=== PATIENT | female | born 1990 | race Caucasian/White ===

== ENCOUNTER 2018-07-04 07:32 | Emergency (ER) | payer BC, OTHER ==
[~2018-07-04] VITALS: Ht 157.5 cm; Wt 44.5 kg
[2018-07-04 07:36] VITALS: BP 136/69; PULSE 98; RESP 16; Ht 157.5 cm; Wt 44.5 kg
--- NOTE | 2018-07-04 09:11 | ERD ---
ER Documentation Chief Complaint Chief Complaint nausea and diarrhea x 3 days HPI 27-year-old female with no past medical surgical history presents with 3-day complaint of nausea and diarrhea. Also epigastric abdominal pain. The symptoms began morning after eating out. She otherwise denies fevers, chills, radiation of abdominal pain, vomiting, vaginal bleeding or discharge, urinary symptoms. Symptoms have improved somewhat over this time span. At time of evaluation patient is nontoxic-appearing with completely reassuring examination. ROS All systems reviewed and are negative except as per history of present illness. PMhx/Soc Medical and Surgical Hx: pt denies Medical Hx, pt denies Surgical Hx Hx Alcohol Use: No Hx Substance Use: No Smoking Status: Never smoker FmHx Family History: No diabetes, No coronary disease, No other Physical Exam Vitals Vital Signs Date Temp Pulse Resp B/P (MAP) Pulse Ox O2 O2 Flow FiO2 Time Delivery Rate 07/04/18 97.7 98 16 136/69 98 07:36 (91) Physical Exam I have reviewed the triage vital signs. Const: Well nourished, well developed, appears stated age Eyes: PERRL, no conjunctival injection HENT: NCAT, Neck supple without meningismus CV: RRR, Warm, well-perfused extremities RESP: CTAB, Unlabored respiratory effort GI: soft, non-tender, non-distended, no masses MSK: No gross deformities appreciated Skin: Warm, dry. No rashes Neuro: grossly non focal Psych: Appropriate mood and affect. Procedures/MDM 27-year-old female presents with epigastric abdominal pain as well as diarrhea. Differential diagnoses includes possible acute gastroenteritis. Abdominal exam without peritoneal signs. Currently euvolemic without evidence of dehydration. No evidence of surgical abdomen or other acute medical emergency including bowel obstruction, viscus perforation, vascular catastrophe, atypical appendicitis, acute cholecystitis at this time. Presentation not consistent with other acute, emergent causes of vomiting / diarrhea at this time. No indication for abdominal imaging. She is eating and drinking without issue and exhibits no signs or symptoms of dehydration. Plan: supportive care, oral rehydration , PMD follow-up DISPOSITION PLAN: We discussed follow up with the patient's primary care doctor within 24 to 48 hours. Patient counseled regarding my diagnostic impression and care plan. Prior to discharge all questions answered. Pt agrees with treatment plan and understands strict return precautions. Precautionary instructions provided including instructions to return to the ER if not improving or for any worsening or changing symptoms or concerns. Departure Diagnosis: Primary Impression: Diarrhea Condition: Stable Patient Instructions: Treating Diarrhea Referrals: [facility] YOU HAVE RECEIVED A MEDICAL SCREENING EXAM AND THE RESULTS INDICATE THAT YOU DO NOT HAVE A CONDITION THAT REQUIRES URGENT TREATMENT IN THE EMERGENCY DEPARTMENT. FURTHER EVALUATION AND TREATMENT OF YOUR CONDITION CAN WAIT UNTIL YOU ARE SEEN IN YOUR DOCTORS OFFICE WITHIN THE NEXT 1-2 DAYS. IT IS YOUR RESPONSIBILITY TO MAKE AN APPOINTMENT FOR FOLOW-UP CARE. IF YOU HAVE A PRIMARY DOCTOR --you should call your primary doctor and schedule an appointment IF YOU DO NOT HAVE A PRIMARY DOCTOR YOU CAN CALL OUR PHYSICIAN REFERRAL HOTLINE AT IF YOU CAN NOT AFFORD TO SEE A PHYSICIAN YOU CAN CHOSE FROM THE FOLLOWING [facility] [address] [facility]. [facility] [address] [facility]. [facility] [address] [facility]. [facility] [address] [facility]. [facility] [address] [facility]. [facility] [address] Additional Instructions: Call your primary care doctor TOMORROW for an appointment during the next 2-3 days.See the doctor sooner or return here if your condition worsens before your appointment time. KAVYA BRADY PA-C July 04, 2018 09:11
== END 2018-07-04 09:17 | disposition home or self-care (01) ==
LOC: FTE 07:32
DX: R19.7 Diarrhea, unspecified (principal)
CPT/HCPCS: 99282

== ENCOUNTER 2018-10-11 08:55 | Inpatient (IN) | payer BC, OTHER ==
[2018-10-11] VITALS (14 sets, daily range): BP systolic 100–114; BP diastolic 62–83; PULSE 62–92; RESP 13–20; Ht 157.5 cm; Wt 45.5 kg
[~2018-10-11] VITALS: Ht 157.5 cm; Wt 45.5 kg
[2018-10-11] MEDS ORDERED: SOD CHLORIDE 0.9% 1,000 ML IV STA (09:08)
[2018-10-11] MEDS ORDERED: morphine 4 MG/ML VIAL IV STA (09:08)
[2018-10-11] MEDS ORDERED: ONDANSETRON 4 MG INJ IV STA (09:08)
[2018-10-11] MEDS ORDERED: SOD CHLORIDE 0.9% 100 ML ONE (10:19)
[2018-10-11] MEDS ORDERED: IOHEXOL 300MG/ML 150 ML BTL ONE (10:19)
[2018-10-11] MEDS ORDERED: PIPER-TAZO 3.375 GM IV (PMX) 100 ML IVPB ONE (11:00)
[2018-10-11] MEDS ORDERED: ONDANSETRON 4 MG INJ IV PRN ×4 (11:30→15:30)
[2018-10-11] MEDS ORDERED: ACETAMINOPHEN 325 MG TAB PO PRN ×2 (11:30→12:00)
--- NOTE | 2018-10-11 11:32 | ERD ---
ER Documentation Chief Complaint Chief Complaint right sided abdominal pain since last, +nausea HPI 27-year-old female presenting with right lower quadrant pain x1 day. Last night patient began having generalized abdominal pain and nausea with no vomiting. No fevers. Has not taken medications for symptoms. She woke up this morning with worsening right lower quadrant pain she states her bowel movements have been loose. Last movement was yesterday. Denies medical problems. NKDA. Surgical history denies. Social history denies ROS All systems reviewed and are negative except as per history of present illness. Allergies Allergies: Coded Allergies: No Known Allergy (Unverified , 10/11/18) PMhx/Soc Medical and Surgical Hx: pt denies Medical Hx, pt denies Surgical Hx Hx Alcohol Use: No Hx Substance Use: No Hx Tobacco Use: No Smoking Status: Never smoker FmHx Family History: No diabetes, No coronary disease, No other Physical Exam Vitals Vital Signs Date Temp Pulse Resp B/P (MAP) Pulse Ox O2 O2 Flow FiO2 Time Delivery Rate 10/11/18 98.1 79 18 127/85 100 08:56 (99) Physical Exam GENERAL: The patient is well-appearing, well-nourished, in no acute distress HEENT: Atraumatic. Conjunctivae are pink. Pupils equal, round, and reactive to light. There is no scleral icterus. Tympanic membranes clear bilaterally. Oropharynx clear. CHEST: Clear to auscultation bilaterally. There are no rales, wheezes or rhonchi. HEART: Regular rate and rhythm. No murmurs, clicks, rubs or gallops. No S3 or S4. ABDOMEN: Normal active bowel sounds. No distention. No organomegaly. Tender to palpation in the right lower quadrant with rebound tenderness. Result Diagram: 10/11/1815 10/11/1815 Results 24 hrs Laboratory Tests Test 10/11/18 09:15 10/11/18 09:16 10/11/18 09:26 White Blood Count 15.1 10^3/ul Red Blood Count 4.98 10^6/ul Hemoglobin 14.8 g/dl Hematocrit 44.1 % Mean Corpuscular Volume 88.6 fl Mean Corpuscular Hemoglobin 29.7 pg Mean Corpuscular 33.6 g/dl Hemoglobin Concent Red Cell Distribution Width 12.4 % Platelet Count 278 10^3/UL Mean Platelet Volume 9.7 fl Immature Granulocytes % 0.500 % Neutrophils % 85.4 % Lymphocytes % 9.0 % Monocytes % 4.8 % Eosinophils % 0.1 % Basophils % 0.2 % Nucleated Red Blood Cells % 0.0 /100WBC Immature Granulocytes # 0.070 10^3/ul Neutrophils # 12.9 10^3/ul Lymphocytes # 1.4 10^3/ul Monocytes # 0.7 10^3/ul Eosinophils # 0.0 10^3/ul Basophils # 0.0 10^3/ul Nucleated Red Blood Cells # 0.0 10^3/ul Sodium Level 138 mmol/L Potassium Level 4.2 mmol/L Chloride Level 101 mmol/L Carbon Dioxide Level 30 mmol/L Anion Gap 7 Blood Urea Nitrogen 12 mg/dl Creatinine 0.58 mg/dl Est Glomerular Filtrat > 60 mL/min Rate mL/min Glucose Level 108 mg/dl Calcium Level 9.9 mg/dl Total Bilirubin 0.7 mg/dl Direct Bilirubin 0.00 mg/dl Indirect Bilirubin 0.7 mg/dl Aspartate Amino 19 IU/L Transf (AST/SGOT) Alanine 15 IU/L Aminotransferase (ALT/SGPT) Alkaline Phosphatase 59 IU/L Total Protein 8.1 g/dl Albumin 4.8 g/dl Globulin 3.30 g/dl Albumin/Globulin Ratio 1.45 Lipase 114 U/L Urine Color YELLOW Urine Clarity CLEAR Urine pH 7.0 Urine Specific [place] 1.020 Urine Ketones TRACE mg/dL Urine Nitrite NEGATIVE mg/dL Urine Bilirubin NEGATIVE mg/dL Urine Urobilinogen NEGATIVE mg/dL Urine Leukocyte Esterase NEGATIVE Socrates/ul Urine Microscopic RBC 11 /HPF Urine Microscopic WBC 1 /HPF Urine Squamous Epithelial Cells FEW /HPF Urine Bacteria FEW /HPF Urine Mucus FEW /HPF Urine Yeast (Budding) FEW /HPF Urine Hemoglobin 1+ mg/dL Urine Glucose NEGATIVE mg/dL Urine Total Protein NEGATIVE mg/dl POC Beta HCG, Qualitative NEGATIVE Current Medications Medications Dose Sig/Jorge Start Time Status Last (Trade) Ordered Route PRN Stop Time Admin Dose Reason Admin Sodium 1,000 ml @ Q1H STAT 10/11/18 DC 10/11/18 Chloride 1,000 mls/hr IV 09:08 09:21 10/11/18 10:07 Morphine 4 mg ONCE STAT 10/11/18 DC 10/11/18 Sulfate IV 09:08 09:29 (morphine) 10/11/18 09:10 Ondansetron 4 mg ONCE STAT 10/11/18 DC 10/11/18 HCl (Zofran IV 09:08 09:21 Inj) 10/11/18 09:10 Iohexol 150 ml STK-MED 10/11/18 DC 10/11/18 (Omnipaque ONCE .ROUTE 10:19 10:31 300mg/ ml) 10/11/18 10:20 Sodium 100 ml @ ud STK-MED 10/11/18 DC 10/11/18 Chloride ONCE .ROUTE 10:19 10:31 10/11/18 10:20 Piperacillin 100 ml @ ONCE ONCE 10/11/18 DC 10/11/18 Sod/ 200 mls/hr IVPB 11:00 10:47 Tazobactam 10/11/18 11:29 Sod Ondansetron 4 mg BRIDGE ORDER 10/11/18 HCl (Zofran PRN IV 11:30 Inj) NAUSEA/VOMITI 10/12/18 11:29 NG 650 mg ER BRIDGE 10/11/18 Acetaminophen PRN PO 11:30 (Tylenol .MILD PAIN 10/12/18 11:29 Tab) 1-3 OR TEMP Procedures/MDM DIAGNOSTIC IMAGING REPORT Patient: SCOUT DYER : 1990 Age: 27 Sex: F MR #: [id number] DOS: 10/11/18 0908 Ordering MD: MARC VELASCO PA-C Location: [facility] Room/Bed: PROCEDURE: CT Abdomen and Pelvis with IV contrast. CLINICAL INDICATION: Abdominal pain TECHNIQUE: CT of the abdomen and pelvis with 100 cc Omnipaque-300 IV contrast. Coronal and sagittal reformatted images. DICOM images are available. One or more of the following dose reduction techniques were used: automated exposure control, adjustment of the mA and/or kV according to patient size, use of iterative reconstruction technique. CTDI 4.2 mGy, DLP 218 mGy-cm. COMPARISON: Ultrasound, 10/11/2018 FINDINGS: Lower thorax: Normal. Liver: Normal. Biliary: Normal gallbladder. No biliary dilatation. Pancreas: Normal. Spleen: Normal. Adrenal glands: Normal. Genitourinary: No hydronephrosis or urinary calculi. Unremarkable urinary bladder. Vascular: No abdominal aortic aneurysm or dissection. Lymph nodes: No lymphadenopathy. Gastrointestinal: The appendix is distended (9 mm diameter) and thick-walled, with adjacent inflammation/edema, compatible with appendicitis. The appendix is retrocecal. No bowel obstruction. Scattered colonic diverticula, without diverticulitis. Peritoneum: No free air, free fluid or abscess. Reproductive organs: Unremarkable. Musculoskeletal: Unremarkable. IMPRESSION: 1. The study is positive for retrocecal appendicitis, as above. 2. Scattered colonic diverticula, without diverticulitis. DIAGNOSTIC IMAGING REPORT Patient: SCOUT DYER : 1990 Age: 27 Sex: F MR #: [id number] DOS: 10/11/18 0908 Ordering MD: MARC VELASCO PA-C Location: [facility] Room/Bed: PROCEDURE: US Pelvis. CLINICAL INDICATION: Pelvic pain. TECHNIQUE: The pelvis was evaluated with transabdominal and transvaginal sonography in the axial and sagittal planes. COMPARISON: No prior study is available for comparison. FINDINGS: Uterus: 7.5 x 5.6 x 3.7 cm. Endometrium: 4 mm. Right ovary: 3.3 x 3.4 x 1.4 cm. Left ovary: 3.3 x 2.4 x 2 cm. Uterine masses: None. Ovarian masses: There is a 2 cm anechoic lesion within the right ovary. There is another 1.2 cm hypoechoic lesion within the right ovary. Color Doppler and pulsed Doppler sonography demonstrate normal flow to the ovaries. Other pelvic masses: None. Free fluid: Mild IMPRESSION: 2 cm anechoic lesion within the right ovary. There is another 1.2 cm hypoechoic lesion within the right ovary. These may represent cysts. Correlate with test to exclude abnormal or ectopic . Mild free fluid, likely physiologic. ER Course: 1L NS saline and morphine given in ED. Zosyn given in ED. MDM: 27-year-old female presenting with abdominal pain. Patient has findings consistent with appendicitis and patient will be admitted for higher level of care. I have low suspicion for other acute abdominal emergencies or ovarian torsion. She does have findings of ovarian cyst which could be causing pain. Patient is admitted for higher level of care and stable at the time of admission. Dr. Ortiz and will assist with admission. Departure Diagnosis: Primary Impression: Appendicitis Condition: Critical SADE VELASCO PA-C Oct 11, 2018 11:32
--- NOTE | 2018-10-11 11:54 | HP ---
Date/Time of Note Date/Time of Note DATE: 10/11/18 TIME: 11:54 Assessment/Plan [facility]TE Prophylaxis Pharmacological prophylaxis: NA/contraindicated Pharm contraindication: low risk/ambulating Lines/Catheters [facility] Peripheral IV Assessment/Plan Hospital Course 27-year-old female with no significant past medical history with abdominal pain and CT evidence of acute appendicitis. 1. Abdominal pain with CT evidence of acute appendicitis. N.p.o. Pain control. IV fluids. Antibiotics. Surgical consult has been obtained. To the OR today. 2. Leukocytosis. Most probably secondary to #1. Management as per #1. 3. ?Ovarian cysts (incidental finding). Outpatient GENERAL OPHTHALMOLOGIST follow-up. Plan: The patient will be kept n.p.o except for medications.. The patient will be started on DVT prophylaxis . The patient will remain a full code. Activities will be as tolerated. The rest of the patient's management will be based on the clinical course, inputs from consultants, and the results of diagnostic studies. The patient was seen in collaboration with Dr. Connor. Result Diagram: 10/11/1815 10/11/18 0915 Results 24hrs Laboratory Tests Test 10/11/18 09:15 10/11/18 09:16 10/11/18 09:26 White Blood Count 15.1 H Red Blood Count 4.98 Hemoglobin 14.8 Hematocrit 44.1 Mean Corpuscular Volume 88.6 Mean Corpuscular Hemoglobin 29.7 Mean Corpuscular Hemoglobin Concent 33.6 Red Cell Distribution Width 12.4 Platelet Count 278 Mean Platelet Volume 9.7 Immature Granulocytes % 0.500 H Neutrophils % 85.4 H Lymphocytes % 9.0 L Monocytes % 4.8 Eosinophils % 0.1 Basophils % 0.2 Nucleated Red Blood Cells % 0.0 Immature Granulocytes # 0.070 H Neutrophils # 12.9 H Lymphocytes # 1.4 Monocytes # 0.7 Eosinophils # 0.0 Basophils # 0.0 Nucleated Red Blood Cells # 0.0 Sodium Level 138 Potassium Level 4.2 Chloride Level 101 Carbon Dioxide Level 30 Anion Gap 7 Blood Urea Nitrogen 12 Creatinine 0.58 Est Glomerular Filtrat Rate mL/min > 60 Glucose Level 108 Calcium Level 9.9 Total Bilirubin 0.7 Direct Bilirubin 0.00 Indirect Bilirubin 0.7 Aspartate Amino Transf (AST/SGOT) 19 Alanine Aminotransferase (ALT/SGPT) 15 Alkaline Phosphatase 59 Total Protein 8.1 Albumin 4.8 Globulin 3.30 H Albumin/Globulin Ratio 1.45 Lipase 114 Urine Color YELLOW Urine Clarity CLEAR Urine pH 7.0 Urine Specific [place] 1.020 Urine Ketones TRACE A Urine Nitrite NEGATIVE Urine Bilirubin NEGATIVE Urine Urobilinogen NEGATIVE Urine Leukocyte Esterase NEGATIVE Urine Microscopic RBC 11 H Urine Microscopic WBC 1 Urine Squamous Epithelial Cells FEW Urine Bacteria FEW A Urine Mucus FEW A Urine Yeast (Budding) FEW A Urine Hemoglobin 1+ H Urine Glucose NEGATIVE Urine Total Protein NEGATIVE POC Beta HCG, Qualitative NEGATIVE HPI/ROS Admit Date/Time Admit Date/Time Hx of Present Illness Chief complaint: Abdominal Pain Consultants 1. Graham Jeong MD, General Surgery. This is a 27-year-old female with no significant past medical history. The patient started having right lower quadrant abdominal pain since last night along with associated nausea, but no vomiting. She denied any radiation of the pain. The patient denied any fevers or chills. The patient has been complaining of loose bowel movements. She denied any urinary frequency or urgency. She denied any headache, chest pain, or dyspnea. She works as an RN at [employer]. In the emergency room, the patient was noticed to have leukocytosis (WBC 15). The patient was afebrile. The patient underwent a CT scan of the abdomen and pelvis that was showing retrocecal appendicitis. The CT also revealed scattered colonic diverticula without evidence any diverticulitis. The patient also underwent a pelvic ultrasound that was showing 2 cm anechoic lesion within the right ovary with another 1.2 cm hypoechoic lesion within the right ovary, which may represent cysts. She was treated with IV Zosyn, IV analgesics, and IV fluids in the emergency room. General surgery consult was obtained by ER physician. ROS Constitutional: nausea Eyes: no complaints ENT: no complaints Respiratory: no complaints Cardiovascular: no complaints Gastrointestinal: pain, diarrhea, nausea Genitourinary: no complaints Musculoskeletal: no complaints Skin: no complaints Neurologic: no complaints Endocrine: no complaints Lymphatic: no complaints Psychological: no complaints Immunologic: no complaints PMH/Family/Social Past Medical History Medical History: no pertinent history Medications Current Medications Ondansetron HCl (Zofran Inj) 4 mg BRIDGE ORDER PRN IV NAUSEA/VOMITING; Start 10/11/18 at 11:30; Stop 10/12/18 at 11:29 Acetaminophen (Tylenol Tab) 650 mg ER BRIDGE PRN PO .MILD PAIN 1-3 OR TEMP; Start 10/11/18 at 11:30; Stop 10/12/18 at 11:29 Coded Allergies: No Known Allergy (Unverified , 10/11/18) Past Surgical History 1. 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 Lives at home with family. Alcohol Use: none Smoking Status: Never smoker Drug Use: none Exam/Review of Systems Vital Signs Vitals Vital Signs Date Temp Pulse Resp B/P (MAP) Pulse Ox O2 O2 Flow FiO2 Time Delivery Rate 10/11/18 98.1 79 18 127/85 100 08:56 (99) Exam Exam General: Adequately build 27 year-old female lying in bed in no apparent distress. HEENT: Normocephalic, atraumatic. Eyes: Anicteric sclerae, conjunctivae clear. ENT: Nasal septum midline, oral mucosa moist. Neck supple, no JVD noticed. Respiratory: Bilaterally clear breath sounds. No use of accessory muscles of respiration. No adventitious breath sounds. Cardiovascular: S1, S2 heard. Regular rate and rhythm. Abdomen: Soft and nondistended. Right upper quadrant tenderness. Genitourinary: Deferred. Extremities: No cyanosis, no clubbing, no edema. Peripheral pulses palpable. Neurologic: Cranial nerves II through XII grossly intact. The patient is awake, alert, and oriented. Skin: Normal skin turgor. No skin rashes. Additional Comments CT Abdomen & Pelvis IMPRESSION: 1. The study is positive for retrocecal appendicitis. 2. Scattered colonic diverticula, without diverticulitis. KACEY BRANCH NP Oct 11, 2018 11:54
[2018-10-11] MEDS ORDERED: SOD CHLORIDE 0.9% 1,000 ML IV SCH (11:55)
[2018-10-11] MEDS ORDERED: NACL 0.9% 3 ML SYG IV SCH (12:00)
[2018-10-11] MEDS ORDERED: morphine 2 MG INJ IV PRN ×2 (12:00→15:30)
[2018-10-11] MEDS ORDERED: HYDROCODONE/APAP (5/325) TAB PO PRN (12:00)
[2018-10-11] MEDS ORDERED: PIPER-TAZO 3.375 GM IV (PMX) 100 ML IVPB SCH (12:00)
--- NOTE | 2018-10-11 14:19 | PREAC ---
Date/Time of Note Date/Time of Note DATE: 10/11/18 TIME: 14:18 Anesthesia Eval and Record Evaluation Time Pre-Procedure Interview DATE: 10/11/18 TIME: 14:18 Age 27 Sex female NPO: 8 hrs Preoperative diagnosis appendicitis Planned procedure laparoscopic appendectomy Past Medical History Past Medical History: None Surgery & Anesthesia Issues No known issue Meds Anticoagulation: No Beta Emmanuel within 24 hr: No Reason Beta Emmanuel not given: Pt. not on B-Emmanuel Current Medications Sodium Chloride 1,000 ml @ 100 mls/hr Q10H IV Last administered on 10/11/18at 12:18; Admin Dose 100 MLS/HR; Start 10/11/18 at 11:55 IV Flush (NS 3 ml) 3 ml PER PROTOCOL IV ; Start 10/11/18 at 12:00 Ondansetron HCl (Zofran Inj) 4 mg Q6H PRN IV NAUSEA/VOMITING; Start 10/11/18 at 12:00 Acetaminophen (Tylenol Tab) 650 mg Q6H PRN PO .PAIN 1-3 OR TEMP; Start 10/11/18 at 12:00 Acetaminophen/ Hydrocodone Bitart ([place] (5/325)) 1 tab Q6H PRN PO .MOD PAIN 4- 6; Start 10/11/18 at 12:00 Morphine Sulfate (morphine) 2 mg Q4H PRN IV .SEVERE PAIN 7-10; Start 10/11/18 at 12:00 Piperacillin Sod/ Tazobactam Sod 100 ml @ 200 mls/hr Q6 IVPB ; Start 10/11/18 at 12:00 Meds reviewed: Yes Allergies Coded Allergies: No Known Allergy (Unverified , 10/11/18) Allergies Reviewed: Yes Labs/Studies Labs Reviewed: Reviewed by anesthesiologist Result Diagram: 10/11/1815 10/11/1815 Laboratory Tests 10/11/18 09:15 test: Negative Pre-procedure Exam Last vitals Vital Signs Date Temp Pulse Resp B/P (MAP) Pulse Ox O2 O2 Flow FiO2 Time Delivery Rate 10/11/18 98.1 79 18 127/85 100 08:56 (99) Airway: Adequate mouth opening, Adequate thyromental dist Mallampati: Mallampati I Teeth: Normal Lung: Normal Heart: Normal ASA Physical Status ASA physical status: 2 Emergency: E Planned Anesthetic General/MAC: ETT Planned Pain Management Parenteral pain med Pre-operative Attestations Prior to commencing anesthesia and surgery, the patient was re-evaluated, there was verification of: *The patient's identity *The results of appropriate recent lab work and preoperative vital signs *The above evaluation not changing prior to induction *Anesthetic plan, risk benefits, alternative and complications discussed with patient/family; questions answered; patient/family understands, accepts and wishes to proceed. FAN BLACKMON Oct 11, 2018 14:19
--- NOTE | 2018-10-11 14:25 | CONS ---
Assessment/Plan Assessment/Plan Assessment/Plan (Daily) Acute retrocecal appendicitis Plan: Laparoscopic appendectomy. I have discussed the procedure and risks in detail with the patient and who have given an informed consent and are anxious to proceed. Consultation Date/Type/Reason Admit Date/Time Date of Consultation: Oct 11, 2018 Type of Consult General surgery Reason for Consultation Acute appendicitis Date/Time of Note DATE: 10/11/18 TIME: 14:22 Hx of Present Illness The patient is an otherwise healthy 27-year-old female who presents with a 1 day history of abdominal pain which intensified in severity than localized to the right lower quadrant. She was noted in the emergency room to have a tender right lower quadrant, and elevated white blood cell count of 15,000, and a CT scan compatible with acute retrocecal appendicitis. Review of systems HEENT: Unremarkable Pulmonary: No history of asthma, pneumonia or shortness of breath Cardiac: No history of chest pain, or arrhythmia GI: As in the HPI : Unremarkable Past Medical History Medical History: no pertinent history Medications Current Medications Sodium Chloride 1,000 ml @ 100 mls/hr Q10H IV Last administered on 10/11/18at 12:18; Admin Dose 100 MLS/HR; Start 10/11/18 at 11:55 IV Flush (NS 3 ml) 3 ml PER PROTOCOL IV ; Start 10/11/18 at 12:00 Ondansetron HCl (Zofran Inj) 4 mg Q6H PRN IV NAUSEA/VOMITING; Start 10/11/18 at 12:00 Acetaminophen (Tylenol Tab) 650 mg Q6H PRN PO .PAIN 1-3 OR TEMP; Start 10/11/18 at 12:00 Acetaminophen/ Hydrocodone Bitart ([place] (5/325)) 1 tab Q6H PRN PO .MOD PAIN 4- 6; Start 10/11/18 at 12:00 Morphine Sulfate (morphine) 2 mg Q4H PRN IV .SEVERE PAIN 7-10; Start 10/11/18 at 12:00 Piperacillin Sod/ Tazobactam Sod 100 ml @ 200 mls/hr Q6 IVPB ; Start 10/11/18 at 12:00 Allergies: Coded Allergies: No Known Allergy (Unverified , 10/11/18) Past Surgical History Past Surgical Hx: no surgical history Family History Significant Family History: no pertinent family hx Social History Alcohol Use: none Smoking Status: Never smoker Drug Use: none Exam/Review of Systems Exam Vitals Vital Signs Date Temp Pulse Resp B/P (MAP) Pulse Ox O2 O2 Flow FiO2 Time Delivery Rate 10/11/18 98.1 79 18 127/85 100 08:56 (99) Constitutional: alert, oriented Psych: no complaints Head: normocephalic Eyes: nl conjunctiva ENMT: nl external ears & nose Neck: supple Respiratory: clear to auscultation Cardiovascular: regular rate and rhythm Gastrointestinal: soft, tender (Tender right lower quadrant without guarding or rebound) Musculoskeletal: nl extremities to inspection Extremities: normal pulses Neurological: [employer] II-XII intact Skin: nl turgor Results Result Diagram: 10/11/1815 10/11/1815 Results 24hrs Laboratory Tests Test 10/11/18 09:15 10/11/18 09:16 10/11/18 09:26 White Blood Count 15.1 H Red Blood Count 4.98 Hemoglobin 14.8 Hematocrit 44.1 Mean Corpuscular Volume 88.6 Mean Corpuscular Hemoglobin 29.7 Mean Corpuscular Hemoglobin Concent 33.6 Red Cell Distribution Width 12.4 Platelet Count 278 Mean Platelet Volume 9.7 Immature Granulocytes % 0.500 H Neutrophils % 85.4 H Lymphocytes % 9.0 L Monocytes % 4.8 Eosinophils % 0.1 Basophils % 0.2 Nucleated Red Blood Cells % 0.0 Immature Granulocytes # 0.070 H Neutrophils # 12.9 H Lymphocytes # 1.4 Monocytes # 0.7 Eosinophils # 0.0 Basophils # 0.0 Nucleated Red Blood Cells # 0.0 Sodium Level 138 Potassium Level 4.2 Chloride Level 101 Carbon Dioxide Level 30 Anion Gap 7 Blood Urea Nitrogen 12 Creatinine 0.58 Est Glomerular Filtrat Rate mL/min > 60 Glucose Level 108 Calcium Level 9.9 Total Bilirubin 0.7 Direct Bilirubin 0.00 Indirect Bilirubin 0.7 Aspartate Amino Transf (AST/SGOT) 19 Alanine Aminotransferase (ALT/SGPT) 15 Alkaline Phosphatase 59 Total Protein 8.1 Albumin 4.8 Globulin 3.30 H Albumin/Globulin Ratio 1.45 Lipase 114 Urine Color YELLOW Urine Clarity CLEAR Urine pH 7.0 Urine Specific [place] 1.020 Urine Ketones TRACE A Urine Nitrite NEGATIVE Urine Bilirubin NEGATIVE Urine Urobilinogen NEGATIVE Urine Leukocyte Esterase NEGATIVE Urine Microscopic RBC 11 H Urine Microscopic WBC 1 Urine Squamous Epithelial Cells FEW Urine Bacteria FEW A Urine Mucus FEW A Urine Yeast (Budding) FEW A Urine Hemoglobin 1+ H Urine Glucose NEGATIVE Urine Total Protein NEGATIVE POC Beta HCG, Qualitative NEGATIVE Medications Medication Current Medications Sodium Chloride 1,000 ml @ 100 mls/hr Q10H IV Last administered on 10/11/18at 12:18; Admin Dose 100 MLS/HR; Start 10/11/18 at 11:55 IV Flush (NS 3 ml) 3 ml PER PROTOCOL IV ; Start 10/11/18 at 12:00 Ondansetron HCl (Zofran Inj) 4 mg Q6H PRN IV NAUSEA/VOMITING; Start 10/11/18 at 12:00 Acetaminophen (Tylenol Tab) 650 mg Q6H PRN PO .PAIN 1-3 OR TEMP; Start 10/11/18 at 12:00 Acetaminophen/ Hydrocodone Bitart ([place] (5/325)) 1 tab Q6H PRN PO .MOD PAIN 4- 6; Start 10/11/18 at 12:00 Morphine Sulfate (morphine) 2 mg Q4H PRN IV .SEVERE PAIN 7-10; Start 10/11/18 at 12:00 Piperacillin Sod/ Tazobactam Sod 100 ml @ 200 mls/hr Q6 IVPB ; Start 10/11/18 at 12:00 DEANNA KINNEY MD Oct 11, 2018 14:25
[2018-10-11] MEDS ORDERED: FENTAnyl 50 MCG/ML VIAL ONE (14:28)
[2018-10-11] MEDS ORDERED: PROPOFOL 20 ML ONE (14:38)
[2018-10-11] MEDS ORDERED: ROCURONIUM 50 MG INJ ONE (14:38)
[2018-10-11] MEDS ORDERED: LIDOCAINE 2% (SDV) 5 ML INJ ONE (14:38)
[2018-10-11] MEDS ORDERED: DEXAMETHASONE 4 MG/ML 5 ML INJ ONE (14:39)
[2018-10-11] MEDS ORDERED: ONDANSETRON 4 MG INJ ONE (14:39)
[2018-10-11] MEDS ORDERED: SODIUM CL BACTERIOSTATIC 30 ML INJ ONE (14:49)
[2018-10-11] MEDS ORDERED: BUPIVACAINE 0.5%/EPI (SDV) 30 ML INJ ONE (14:49)
[2018-10-11] MEDS ORDERED: KETOROLAC 30 MG INJ ONE (14:52)
[2018-10-11] MEDS ORDERED: SUGAMMADEX SODIUM 200 MG/2 ML VIAL IV ONE (14:53)
[2018-10-11] MEDS ORDERED: FENTAnyl 50 MCG/ML VIAL IV PRN ×3 (15:00)
[2018-10-11] MEDS ORDERED: DIPHENHYDRAMINE 50 MG INJ IV PRN (15:00)
[2018-10-11] MEDS ORDERED: MEPERIDINE 25 MG INJ IV PRN (15:00)
[2018-10-11] MEDS ORDERED: MIDAZOLAM 1 MG/ML 2 ML INJ IV PRN (15:00)
[2018-10-11] MEDS ORDERED: hydrALAzine 20 MG INJ IV PRN (15:00)
[2018-10-11] MEDS ORDERED: LABETALOL HCL 20MG INJ IV PRN (15:00)
[2018-10-11] MEDS ORDERED: KETOROLAC 30 MG INJ IV PRN (15:00)
[2018-10-11] MEDS ORDERED: EPHEDrine 25 MG/5 ML SYG IV PRN (15:00)
[2018-10-11] MEDS ORDERED: METOCLOPRAMIDE 10 MG INJ IV PRN (15:00)
[2018-10-11] MEDS ORDERED: HYDROmorphONE 1 MG/5 ML IV SYRINGE IV PRN ×3 (15:00)
[2018-10-11] MEDS ORDERED: ALBUTEROL 0.083% (NEB) 2.5 MG/3 ML AMP HHN PRN (15:00)
--- NOTE | 2018-10-11 15:12 | OPR ---
Date/Time of Note Date/Time of Note DATE: 10/11/18 TIME: 15:08 Operative Report Procedure Date: Oct 11, 2018 Preoperative Diagnosis Acute retrocecal appendicitis Postoperative Diagnosis Acute retrocecal appendicitis with localized peritonitis Operation/Procedure Performed Laparoscopic appendectomy Surgeon Deanna Kinney MD [employer]printer None Anesthesia Type: general Anesthesiologist: FAN BLACKMON Estimated Blood Loss: minimal Transfusion none Specimen Appendix Grafts/Implants none Tubes/Drains None Complications none Pt Condition Post Procedure: stable Disposition: PACU Indications Acute appendicitis Procedure Description After satisfactory general endotracheal anesthesia was achieved, the abdomen was prepped and draped in the usual fashion. The abdomen was insufflated with carbon dioxide through an umbilical Veress needle to 15 mmHg pressure. The Veress needle was removed and the umbilical incision extended to 5 mm through which a 5 mm trocar was placed. A 5 mm 0 degree lens was placed. Laparoscopy showed an acutely inflamed retroperitoneal appendix with mild localized perito nitis. Under direct visualization a 5 mm suprapubic trocar was placed as well as a 12 mm left lower quadrant trocar. The camera was placed into the suprapubic port. The appendix was mobilized. A window was made in the mesoappendix through which a vascular stapler was placed across the base of the cecum, closed and fired, disconnecting the appendix from the cecum. A second firing of the stapler across the mesoappendix fully freed the appendix which was placed into an Endo Catch removed via the left lower quadrant port. With the assistance of a abdi-close device, 2 sutures of 0 Vicryl were placed at the 12 mm port site. The abdomen was then desufflated and the trochars were removed. The fascial sutures were tied down. The skin punctures were infiltrated with 30 cc of 0.25% Marcaine with epinephrine. Subcu was closed with 3-0 Vicryl and skin closed with 4-0 subcuticular Vicryl and Dermabond. Sponge and needle counts were reported as correct x2. DEANNA KINNEY MD Oct 11, 2018 15:12
--- NOTE | 2018-10-11 15:12 | PAC ---
Date/Time of Note Date/Time of Note DATE: 10/11/18 TIME: 15:12 Post-Anesthesia Notes Post-Anesthesia Note Last documented vital signs Vital Signs Date Temp Pulse Resp B/P (MAP) Pulse Ox O2 O2 Flow FiO2 Time Delivery Rate 10/11/18 98.1 79 18 127/85 100 1512 (99) Activity: WNL Respiratory function: WNL Cardiovascular function: WNL Mental status: Baseline Pain reasonably controlled: Yes Hydration appropriate: Yes Nausea/Vomiting absent: Yes FAN BLACKMON Oct 11, 2018 15:12
[2018-10-11] MEDS ORDERED: OXYCODONE/ACETAMINOPHEN (5/325) TAB PO PRN ×2 (15:30)
--- NOTE | 2018-10-11 16:50 | DS ---
Date/Time of Note Date/Time of Note DATE: 10/11/18 TIME: 16:50 Discharge Summary Admission/Discharge Info Admit Date/Time Discharge Date/Time Discharge Diagnosis 1. Acute appendicitis. Status post laparoscopic appendectomy on 10/11/2018. Patient Condition: Stable Consults 1. Graham Jeong MD, General Surgery. Procedures Operative Report Procedure Date: Oct 11, 2018 Preoperative Diagnosis Acute retrocecal appendicitis Postoperative Diagnosis Acute retrocecal appendicitis with localized peritonitis Operation/Procedure Performed Laparoscopic appendectomy Hx of Present Illness Chief complaint: Abdominal Pain Consultants 1. Graham Jeong MD, General Surgery. This is a 27-year-old female with no significant past medical history. The patient started having right lower quadrant abdominal pain since last night along with associated nausea, but no vomiting. She denied any radiation of the pain. The patient denied any fevers or chills. The patient has been complaining of loose bowel movements. She denied any urinary frequency or urgency. She denied any headache, chest pain, or dyspnea. She works as an RN at [employer]. In the emergency room, the patient was noticed to have a leukocytosis (WBC 15). The patient was afebrile. The patient underwent a CT scan of the abdomen and pelvis that was showing retrocecal appendicitis. The CT also revealed scattered colonic diverticula without evidence of any diverticulitis. The patient also underwent a pelvic ultrasound that was showing 2 cm anechoic lesion within the right ovary with another 1.2 cm hypoechoic lesion within the right ovary, which may represent cysts. She was treated with IV Zosyn, IV analgesics, and IV fluids in the emergency room. General surgery consult was obtained by ER physician. Hospital Course The patient was kept n.p.o. She was started on IV fluids and IV antibiotics. She was provided with adequate pain control. General surgery consult was obtained. The patient was taken to the OR and the patient underwent a laparoscopic appendectomy. Operative findings showed acute retrocecal appendicitis with localized peritonitis. Status post procedure, the patient was transferred to PACU. The patient was started on a diet and the patient was able to tolerate a diet. The patient was discharged home directly from PACU by the surgeon. All the discharge instructions and prescriptions were given by the general surgeon. At this time I would like to thank Dr. Jeong for seeing the patient, doing the necessary procedures, and providing clinical recommendations. The patient was seen in collaboration with Dr. Connor. Follow-up Plan The patient will follow up with Dr. Jeong's office. Primary Care Provider Not On Staff Doctor Time spent on discharge: < 30 minutes Pending Labs Laboratory Tests Test 10/11/18 09:15 10/11/18 09:16 10/11/18 09:26 White Blood Count 15.1 10^3/ul (4.8-10.8) Red Blood Count 4.98 10^6/ul (4.20-5.40) Hemoglobin 14.8 g/dl (12.0-16.0) Hematocrit 44.1 % (37.0-47.0) Mean Corpuscular 88.6 Volume fl (82.0-101.0) Mean Corpuscular 29.7 pg (29.0-33.0) Hemoglobin Mean Corpuscular 33.6 Hemoglobin Concent g/dl (32.0-37.0) Red Cell 12.4 % (11.5-14.5) Distribution Width Platelet Count 278 10^3/UL (140-415) Mean Platelet 9.7 fl (7.4-10.4) Volume Immature 0.500 Granulocytes % % (0.001-0.429) Neutrophils % 85.4 % (39.0-77.0) Lymphocytes % 9.0 % (15.0-51.0) Monocytes % 4.8 % (0.0-11.0) Eosinophils % 0.1 % (0.0-7.0) Basophils % 0.2 % (0.0-2.0) Nucleated Red Blood 0.0 Cells % /100WBC (0.0-0.0) Immature 0.070 Granulocytes # 10^3/ul (0.0-0.031) Neutrophils # 12.9 10^3/ul (1.6-7.5) Lymphocytes # 1.4 10^3/ul (0.8-2.9) Monocytes # 0.7 10^3/ul (0.3-0.9) Eosinophils # 0.0 10^3/ul (0.0-0.5) Basophils # 0.0 10^3/ul (0.0-0.1) Nucleated Red Blood 0.0 Cells # 10^3/ul (0.0-0.0) Sodium Level 138 mmol/L (135-144) Potassium Level 4.2 mmol/L (3.5-5.1) Chloride Level 101 mmol/L (97-110) Carbon Dioxide 30 mmol/L (21-31) Level Anion Gap 7 (5-13) Blood Urea 12 mg/dl (7-20) Nitrogen Creatinine 0.58 mg/dl (0.44-1.00) Est Glomerular > 60 mL/min (>60) Filtrat Rate mL/min Glucose Level 108 mg/dl (70-220) Calcium Level 9.9 mg/dl (8.4-10.2) Total Bilirubin 0.7 mg/dl (0.2-1.3) Direct Bilirubin 0.00 mg/dl (0.00-0.20) Indirect Bilirubin 0.7 mg/dl (0-1.1) Aspartate Amino 19 IU/L (15-46) Transf (AST/SGOT) Alanine 15 IU/L (13-69) Aminotransferase (A LT/SGPT) Alkaline 59 IU/L (42-121) Phosphatase Total Protein 8.1 g/dl (6.1-8.1) Albumin 4.8 g/dl (3.3-4.9) Globulin 3.30 g/dl (1.3-3.2) Albumin/Globulin 1.45 Ratio Lipase 114 U/L (23-300) Urine Color YELLOW (YELLOW) Urine Clarity CLEAR (CLEAR) Urine pH 7.0 (5.0-9.0) Urine Specific 1.020 (1.003-1.030 [place] ) Urine Ketones TRACE mg/dL (NEGATIVE) Urine Nitrite NEGATIVE mg/dL (NEGATIVE) Urine Bilirubin NEGATIVE mg/dL (NEGATIVE) Urine Urobilinogen NEGATIVE mg/dL (NEGATIVE) Urine Leukocyte NEGATIVE Socrates/ul Esterase Urine Microscopic 11 /HPF (0-5) RBC Urine Microscopic 1 /HPF (0-5) WBC Urine Squamous FEW /HPF (FEW) Epithelial Cells Urine Bacteria FEW /HPF (NONE SEEN) Urine Mucus FEW /HPF (NONE SEEN) Urine Yeast FEW /HPF (Budding) (NONE SEEN) Urine Hemoglobin 1+ mg/dL (NEGATIVE) Urine Glucose NEGATIVE mg/dL (NEGATIVE) Urine Total NEGATIVE Protein mg/dl (NEGATIVE) POC Beta HCG, NEGATIVE (NEGATIVE Qualitative ) KACEY BRANCH NP Oct 11, 2018 16:50
== END 2018-10-11 16:43 | disposition home or self-care (01) | DRG 343 ==
LOC: FTE 08:55 → REC 11:15
PROVIDERS: ADMIT Internal Medicine; ATTEND Internal Medicine
PROC: 0DTJ4ZZ Resection of Appendix, Percutaneous Endoscopic Approach (ICD-10-PCS; principal; 2018-10-11 14:00)
DX: K35.30 Acute appendicitis with localized peritonitis, without perforation or gangrene (principal); D72.829 Elevated white blood cell count, unspecified
CPT/HCPCS: 36415; 74177; 76830; 76856; 80053; 81001; 81025; 83690; 85025; 88304; 96361; 96365; 96375; J1100; J1170; J1885; J2270; J2405; J2543; J3010; J7030; Q9967

== ENCOUNTER 2018-11-03 15:54 | Emergency (ER) | payer BC, OTHER ==
[~2018-11-03] VITALS: Ht 157.5 cm; Wt 46.0 kg
[~2018-11-03 15:54] MED LIST: IBUP800T48 PO
[2018-11-03 16:00] VITALS: BP 103/65; PULSE 76; RESP 20; Ht 157.5 cm; Wt 46.0 kg
[2018-11-03] MEDS ORDERED: SOD CHLORIDE 0.9% 1,000 ML IV STA (16:36)
[2018-11-03] MEDS ORDERED: BARIUM SULF 2% 450 ML BTL (BERRY SMOOTHIE) PO ONE (17:00)
[2018-11-03] MEDS ORDERED: IOHEXOL 300MG/ML 150 ML BTL ONE (19:19)
[2018-11-03] MEDS ORDERED: SOD CHLORIDE 0.9% 100 ML ONE (19:19)
== END 2018-11-03 20:22 | disposition home or self-care (01) ==
LOC: FTE 15:54
DX: R10.31 Right lower quadrant pain (principal)
CPT/HCPCS: 36415; 74177; 80053; 81001; 81025; 83690; 84702; 85025; 96360; 99285; J7030; Q9967